=== PATIENT | male | born 1980 | race Caucasian/White ===

== ENCOUNTER 2023-11-07 17:39 | Emergency (ER) | payer BC ==
[~2023-11-07] VITALS: Ht 195.6 cm; Wt 103.6 kg
[2023-11-07 18:12] LABS: BASO # 0.01 K/mm3 (0.02-0.10); EOS # 0.13 K/mm3 (0.04-0.40); EOS % 1.8 % (0.0-4.0); HEMATOCRIT 41.9 % (42.0-52.0); HEMOGLOBIN 14.2 g/dL (13.5-18.0); LYMPH# 1.43 K/mm3 (1.50-4.00); MEAN CELL VOLUME 89 fl (78-100); MEAN CORPUSCULAR HEMOGLOBIN 30 pg (27-31); MEAN CORPUSCULAR HGB CONC 34 g/dL (33-37); MEAN PLATELET VOLUME 10.3 fl (7.4-10.4); MONO # 0.38 K/mm3 (0.20-0.80); NEU # 5.17 K/mm3 (1.40-6.50); PLATELET COUNT 199 K/mm3 (130-400); RED BLOOD COUNT 4.73 M/mm3 (4.20-5.60); RED CELL DISTRIBUTION WIDTH 12.6 % (11.5-14.5); WHITE BLOOD COUNT 7.1 K/mm3 (4.8-10.8)
[2023-11-07 18:15] LABS: ALBUMIN 4.1 g/dL (3.5-5.0); SODIUM 140 mmol/L (136-145)
[2023-11-07 18:16] LABS: CALCIUM 9.2 mg/dL (8.3-10.5)
[2023-11-07 18:17] LABS: GLUCOSE 90 mg/dL (75-110); TOTAL PROTEIN 6.7 g/dL (6.4-8.3)
[2023-11-07 18:18] LABS: CARBON DIOXIDE 22 mmol/L (22-29)
[2023-11-07 18:19] LABS: TOTAL BILIRUBIN 0.5 mg/dL (0.2-1.2)
[2023-11-07 18:22] LABS: AST-SGOT 22 U/L (5-34)
[2023-11-07 18:24] LABS: ALT/SGPT 28 U/L (0-55)
[2023-11-07 18:27] LABS: MAGNESIUM 1.89 mg/dL (1.60-2.60)
[2023-11-07 18:33] LABS: TROPONIN-I < 0.030 ng/mL (0.00-0.033)
[2023-11-07] MEDS ORDERED: NS 500 ML IV SCH (18:45)
[2023-11-07 19:25] VITALS: BP 118/79
== END 2023-11-07 19:25 | disposition home or self-care (01) ==
LOC: ED 17:39
PROVIDERS: Physician Assistant
DX: I49.3 Ventricular premature depolarization (principal)
CPT/HCPCS: J7040

== ENCOUNTER → 2024-02-10 | Outpatient (CLI) | payer BC ==
[~2024-02-10] VITALS: Ht 195.6 cm; Wt 97.5 kg
[~2024-02-10] MED LIST: CLOBETASOL PROP15 GM TP; CLONAZEPAM0.5 M1 PO; DILTIAZEM HCL60 MG PO; TESTOSTERO200 MG/1 M IM
== END ==
LOC: PT 09:21 → CARDREHAB 09:23
DX: I48.91 Unspecified atrial fibrillation (principal)
CPT/HCPCS: A9500